=== PATIENT | female | born 1950 | race Caucasian/White ===

== ENCOUNTER → 2024-10-08 10:42 | Outpatient (CLI) | payer MEDICARE, OTHER, SELFPAY ==
[2024-10-08 12:07] LABS: Add Manual Diff / Slide Review NO; Basophils Absolute Auto 100 /uL (0-100); Basophils Percent Auto 1.3 % (0-2); Eosinophils Absolute Auto 0 /uL (0-450); Eosinophils Percent Auto 0.8 % (2-4); Hematocrit 42.5 % (36-46); Hemoglobin 14.5 g/dL (12.0-16.0); Lymphocytes Absolute Auto 1800 /uL (1100-4500); Lymphocytes Percent Auto 38.1 % (25-40); Mean Corpuscular HGB Conc 34.1 % (30-36); Monocytes Absolute Auto 300 /uL (0-900); Monocytes Percent Auto 6.2 % (3-14); Neutrophils Absolute Auto 2500 /uL (1500-7000); Neutrophils Percent Auto 53.6 % (50-75); Platelet Count 220 X10^3/uL (150-400); Red Blood Cell Count 4.52 X10^6/uL (4.0-5.2); Red Cell Distribution Width 13.5 % (11.6-14.8); White Blood Cell Count 4.6 X10^3/uL (4.5-11.0)
[2024-10-08 12:28] LABS: Alanine Aminotransferase 37 IU/L (<35); Albumin 4.1 g/dL (3.5-5.0); Albumin Globulin Ratio 1.3 (1.0-2.8); Alkaline Phosphatase 95 U/L (38-126); Aspartate Aminotransferase 45 IU/L (14-36); BUN Creatinine Ratio 19.3 (6-22); Bilirubin Total 1.5 mg/dL (0.2-1.3); Blood Urea Nitrogen 17 mg/dL (7-17); Calcium 9.5 mg/dL (8.4-10.2); Carbon Dioxide 26 mmol/L (22-32); Chloride 107 mmol/L (98-107); Cholesterol 311 mg/dL (140-199); Estimated Glomerular Filt Rate > 60 mL/min (>60); Globulin 3.2 g/dL (1.7-4.1); Glucose 100 mg/dL (80-110); HDL Cholesterol 92 mg/dL (40-60); HEMOLYSIS < 15 (0-50); LDL Cholesterol Calculated 185 mg/dL (<100); Potassium 4.2 mmol/L (3.4-5.1); Sodium 138 mmol/L (137-145); Total Protein 7.3 g/dL (6.3-8.2); Triglycerides 168 mg/dL (35-150)
[2024-10-08 14:30] LABS: Hemoglobin A1C% w Est Avg Glu 5.2 % (4.0-6.0)
== END ==
LOC: LAB 10:45
PROVIDERS: PCP Family Medicine; Referring Provider Family Medicine; Visit Provider Family Medicine
DX: R10.11 Right upper quadrant pain (principal); Z13.1 Encounter for screening for diabetes mellitus; Z13.6 Encounter for screening for cardiovascular disorders; Z13.0 Encounter for screening for diseases of the blood and blood-forming organs and certain disorders involving the immune mechanism; Z12.11 Encounter for screening for malignant neoplasm of colon
CPT/HCPCS: 36415; 80053; 80061; 83036; 85025

== ENCOUNTER → 2024-11-06 11:51 | Outpatient (CLI) | payer MEDICARE, OTHER, SELFPAY ==
--- NOTE | 2024-11-06 11:52 | DI.MG.S_ITS ---
BILATERAL DIGITAL SCREENING MAMMOGRAM 3D/2D WITH CAD: 11/06/2024 CLINICAL: Routine screening. Comparison is made to exams dated: 03/01/2023 mammogram and 08/20/2021 mammogram - outside location. The breasts are almost entirely fatty (category a/<25% glandular tissue). Current study was also evaluated with a Computer Aided Detection (CAD) system. No significant masses, calcifications, or other findings are seen in either breast. There has been no significant interval change. IMPRESSION: NEGATIVE There is no mammographic evidence of malignancy. A 1 year screening mammogram is recommended. Based on the Tyrer Cuzick model (a risk assessment model) the patient's lifetime risk is 2.0% and her 10 year risk is 2.0%. According to the ACR, ACS, and NCCN guidelines, an annual breast MRI exam along with mammogram is recommended if the patient's lifetime risk is 20% or greater. This exam was interpreted at Station ID: [id number]. NOTE: For mammograms, a report in lay terms will be sent to the patient. Approximately 15% of breast malignancies will not be visualized mammographically. In the management of a palpable breast mass, a negative mammogram must not discourage biopsy of a clinically suspicious lesion. Electronically Signed By: Moshe youngblood/brian:11/06/2024 15:49:03 letter sent: Normal Exam ACR BI-RADS Category 1: Negative
--- NOTE | 2024-11-06 11:52 | DI.US.S_ITS ---
PROCEDURE: US ABDOMEN COMPLETE INDICATIONS: RUQ pain, atypical, 2 yrs TECHNIQUE: Real-time scanning was performed of the abdominal and retroperitoneal organs, with image documentation. COMPARISON: None. FINDINGS: Liver: Liver is normal in size and homogeneous in echotexture. The parenchyma is hyperechoic. Gallbladder: No gallstones. No wall thickening. No pericholecystic edema. Negative sonographic Irizarry's sign. Biliary ducts: Intrahepatic bile ducts are non-dilated. Extrahepatic bile duct caliber measures 6 mm. Normal is 6-7 mm or less in diameter, or 10 mm or less post-cholecystectomy. Pancreas: Visualized portions of the pancreas are sonographically normal. Miscellaneous: No free abdominal fluid. The inferior vena cava is patent. Spleen: The spleen is normal in size, measuring 8.5 cm in maximal length. Kidneys: The right kidney measures 9.4 cm in length. The left kidney measures 9.0 cm in length. Aorta: The visualized portions of the aorta measure under 3 centimeters in maximal diameter. Common iliac arteries: The common iliac arteries are normal in diameter, measuring 1.2 cm on the right and 1.3 cm on the left. IMPRESSION: Hepatic steatosis versus underlying hepatocellular disease. Otherwise, no acute sonographic abnormality of the abdomen. Dictated by: Josue Umana M.D. on 11/06/2024 at 16:56 Approved by: Josue Umana M.D. on 11/06/2024 at 16:58
== END ==
PROVIDERS: PCP Family Medicine; Referring Provider Family Medicine; Visit Provider Family Medicine
DX: Z12.31 Encounter for screening mammogram for malignant neoplasm of breast (principal); R92.313 Mammographic fatty tissue density, bilateral breasts; R10.11 Right upper quadrant pain
CPT/HCPCS: 76700; 77063; 77067

== ENCOUNTER 2024-11-12 07:54 | Day surgery (SDC) | payer MEDICARE, OTHER, SELFPAY ==
--- NOTE | 2024-11-12 | PATH_ITS ---
[facility] Accession Number: [id number] No. of containers..01 Tissue . 01 Material submitted: . colon - CECAL POLYP . 01 Diagnosis: CECAL POLYP: Tubular adenoma. MRV 11/13/2024 1350 Local . 01 Electronically signed: . Francisco Estrella MD, PhD, Pathologist NPI- [id number] . 01 Gross description: . CECAL POLYP: Received in formalin are 2 fragment(s) of salcedo, soft tissue measuring 0.1 x 0.1 x 0.1 cm to 0.3 x 0.2 x 0.2 cm submitted entirely in 1 cassette(s) /FERNANDA 11/13/2024 0123 Local . 01 Pathologist provided ICD-10: D12.0 . 01 CPT . 388911 Specimen Comment: A courtesy copy of this report has been sent to [facility] Pathology Performed at: [address] [facility] [address] [address], [place], [place] [id number] MD Ronald Ashford MD Phone: [phone]
[2024-11-12 08:38] VITALS: BP 117/68; PULSE 66; RESP 13; TEMP 36.2; O2SAT 98
[2024-11-12] MEDS: SODIUM CHLORIDE 0.9% 1,000 ML 84 ML IV (08:47)
--- NOTE | 2024-11-12 09:25 | P.HP_ITS ---
History of Present Illness History of Present Illness Date Patient Seen: 11/12/24 Time Patient Seen: 09:25 Chief complaint: Screening Colonoscopy Narrative: 74-year-old white female, last colonoscopy 10-15 years ago, no previous polyps noted. No changes in bowel habits. [facility] Medical History Fractures (~2012) Mumps (~1956) Cluster headache syndrome Surgical History Anesthesia History of hand surgery (~2012) S/P tubal ligation (~1978) History of appendectomy (10/31/1956) S/P tonsillectomy (~1955) Family History Mother Diabetes mellitus Grandmother Diabetes mellitus Social History marital status: unmarried,living together number of children: 1 household members: significant other lives independently: Yes caregiver/support person: No [facility] pets and animals: Yes (dog) education level: college occupational status: other current occupational exposures/hazards: No rosita/anabaptist: none special rosita needs: No leisure activities: exercise, music and reading seatbelt use: always helmet use: No working smoke detector in home: Yes fire extinguisher in home: Yes carbon monox detector in home: Yes firearms in home: No do you feel safe at home: Yes Smoking Status: Former smoker Tobacco: How many years used: 12 second hand exposure: No alcohol intake: current during the past year weight has: remained stable well-balanced diet: daily or most days daily servings fruits/ve-4 caffeine: Yes (2-3 cups per day) eating out: 1-3 times/week Type(s) of exercise: walking, regular exercise, resistance training and running frequency: 5-6 times per week duration: 60-90 minutes/day additional social history: OI since May 2023. has 3 homes: [facility] lives with partners due for colonoscopy: last done 2007, negative in the past Headaches -- cluster -- more frequent needs script : sumatriptan at onset only facial numbness PSHX: tonsils, appy BTL, hand surgery left NKDA tobacco: no etoh: 1 glass/week exercise? MM: couple years no breast problems FHX: diabetes maternal 09/2024 Meds Home Medications and Allergies Home Medications Medication Instructions Recorded Confirmed Type sumatriptan succinate 50 mg tablet 50 mg PO ONCE cluster headache #10 10/02/24 10/10/24 Rx tabs sodium,potassium,mag sulfates 17.5 See Rx Instructions PO .COMPLEX 11/05/24 Rx gram-3.13 gram-1.6 gram oral soln #354 mL (Suprep Bowel Prep Kit) Allergies Allergy/AdvReac Type Severity Reaction Status Date / Time No Known Drug Allergies Allergy Verified 10/10/24 09:48 Review of Systems Review of Systems ROS: Yes All systems reviewed with the patient and are negative except as otherwise documented Exam Vital Signs (past 8 hours): - 11/12/24 08:38 Temperature 97.2 F L Pulse Rate 66 Respiratory Rate 13 Blood Pressure 117/68 Pulse Oximetry 98 Oxygen Delivery Method Room Air Oxygen Delivery Method Room Air Narrative Exam Narrative: Gen: NAD, sitting comfortably in bed, appears well HEENT: Sclera are anicteric, head is normocephalic and atraumatic, trachea is midline. CV: RRR, no JVD Resp: clear to auscultation bilaterally, equal chest wall movement bilaterally Abd: soft, nontender, normoactive bowel sounds Ext: no edema, full range of motion Neuro: Cranial nerves II-XII grossly intact, no focal deficits Skin: No erythema or ecchymosis Assessment & Plan Assessment and plan (1) Colon cancer screening: Status: Acute Assessment & Plan narrative: Patient presents for colonoscopy Risks, benefits, alternatives to colonoscopy explained, including but not hernandez ited to bowel perforation or other serious complication requiring surgery at less than 1 in 5000 colonoscopies, abdominal pain, cramping or bleeding and less than 1% of colonoscopies, and the chances that we find a diagnosis that would require further intervention of about 2%. Patient agrees to proceed. Time-Based Coding :: [TOTAL MINUTES] spent with patient and on the chart (including review of chart, obtaining history, exam, reviewing outside data, placing orders, documenting exam and treatment plan, and counseling patient) on [DATE].
--- NOTE | 2024-11-12 09:50 | PM.OP.COLON ---
Operative Date/Time/Diagnoses Date of procedure: 11/12/24 Time of procedure: 09:50 Pre-op diagnosis: Colon screening Post-op diagnosis: same (Cecal polyp) Procedure & Clinicians Study performed: Colonoscopy with cold snare polypectomy of cecal polyp Same procedure as scheduled: Yes Indications: Colon screening Surgeon: Delon Alexandra Procedure Notes SCOAP/Timeout: Performed Procedure in detail: Time-out was performed. Mac was induced. Patient was placed in left lateral decubitus position. The perineum was inspected without any gross abnormality. Lubricated pediatric colonoscope was inserted and advanced to the cecum. The terminal ileum was intubated. The colonoscope was withdrawn slowly inspecting the circumference of the colon. Cold snare polypectomy was used to remove a small sessile polyp from the cecum. This was retrieved completely. Very small polyps may have been missed, prep quality was adequate. Retroflexed view of the rectum showed small, non prolapsed nonbleeding internal hemorrhoids. The scope was withdrawn the patient was taken to PACU in good condition. Scope withdrawal time: 6 Sedation minutes: 15 Findings: polyp(s) (Small, 6 mm sessile cecal polyp) Post-procedure Recommendations: Colonoscopy in 10 years (Next colonoscopy in 7-10 years if in good health) Follow up: as needed Disposition: PACU
[2024-11-12 09:53] VITALS: BP 89/52; PULSE 80; RESP 16; TEMP 36.5; O2SAT 97
[2024-11-12 09:55] VITALS: BP 92/59; PULSE 79; RESP 16; O2SAT 97
[2024-11-12 10:01] VITALS: BP 101/62; PULSE 74; RESP 14; O2SAT 98
[2024-11-12 10:06] VITALS: BP 104/63; PULSE 73; RESP 16; O2SAT 98
== END 2024-11-12 10:34 | disposition home or self-care (01) ==
PROVIDERS: PCP Family Medicine; Referring Provider Surgery; Visit Provider Surgery
PROC: 0DJD8ZZ Inspection of Lower Intestinal Tract, Via Natural or Artificial Opening Endoscopic (ICD-10-PCS; CPT 45378; principal; 2024-11-12 09:15)
DX: Z12.11 Encounter for screening for malignant neoplasm of colon (principal); D12.0 Benign neoplasm of cecum; K64.8 Other hemorrhoids
CPT/HCPCS: 45385; J2405; J2704

== ENCOUNTER → 2024-11-16 11:29 | Outpatient (CLI) | payer MEDICARE, OTHER, SELFPAY ==
--- NOTE | 2024-11-16 | DI.MRI.S_ITS ---
PROCEDURE: MR OPTIC NRV WWO CON INDICATIONS: LOSS OF VISION LEFT EYE W/ OPTIC NERVE ATROPHY TECHNIQUE: Noncontrast sagittal T1 spin echo, axial FLAIR, axial gradient echo, axial diffusion and ADC acquired through the brain. Coronal STIR, thin-slice axial T1 spin echo through the orbits. After the administration of contrast, thin-slice axial and coronal T1 spin echo with fat saturation through the orbits, axial and coronal and sagittal T1 spin echo with fat saturation through the brain. COMPARISON: None. FINDINGS: Image quality: Mac row diagnostic neck Orbits: Globes are symmetrical. The left optic nerve is slightly smaller than the right. No masses or abnormal enhancement can be seen along the optic nerves. No retrobulbar masses or fat abnormalities. The extra-ocular muscles are normal and symmetric in appearance. Lacrimal glands are normal. Optic chiasm is normal. Periorbital soft tissues appear normal. CSF spaces: Ventricles are normal in size and shape. Basal cisterns are patent. No extra-axial fluid collections. Brain: No intracranial bleeds or mass effects. No abnormal intracranial enhancement. Parker-white matter interface is intact. Diffusion weighted images demonstrate no acute ischemic insults. Pituitary gland appears normal, without sellar or suprasellar masses. Brainstem appears normal. Normal intravascular flow voids are present. Note is made of age-appropriate brain parenchymal volume loss and chronic small vessel ischemic changes. Symmetric calcification can be seen involving the basal ganglia, which is considered to be normal for age. Skull and face: Calvarial marrow is normal in signal. Sinuses: Sinuses and mastoids are clear. IMPRESSION: The left optic nerve is slightly smaller in size than the right. However, the degree of atrophy is not striking on these images. No masses or abnormal abnormalities can be seen within the orbits. No significant brain parenchymal abnormality is seen. Dictated by: Davie Wan M.D. on 11/16/2024 at 12:59 Approved by: Davie Wan M.D. on 11/16/2024 at 13:02
== END ==
PROVIDERS: PCP Family Medicine; Referring Provider Family Medicine; Visit Provider Family Medicine
DX: H53.40 Unspecified visual field defects (principal); H47.20 Unspecified optic atrophy
CPT/HCPCS: 70543; 70553; A9579

== ENCOUNTER → 2024-11-26 13:39 | Outpatient (CLI) | payer MEDICARE, OTHER, SELFPAY ==
--- NOTE | 2024-11-26 13:41 | DI.RAD.S_ITS ---
PROCEDURE: XR DEXA AXIAL SKELETON INDICATIONS: osteoporosis screening COMPARISON: None. FINDINGS: Lumbar Spine: Bone mineral density 1.203 g/cm2, T score 1.1. Left Femoral Neck: Bone mineral density 0.731 g/cm2, T score -1.1. Left Hip: Bone mineral density 0.904 g/cm2, T score -0.3. Fracture Risk Calculation (when applicable): 10-year fracture risk of a major osteoporotic fracture 5.4 percent and of a hip fracture 0.9 percent. (T score greater or equal to -1.0 to: NORMAL) (T score from -1.1 to -2.4: OSTEOPENIA) (T score less than or equal to -2.5: OSTEOPOROSIS) IMPRESSION: Osteopenia with increased 10 year fracture risk. Follow-up guidelines as follows: Osteoporosis: Consider a repeat DEXA and Vertebral Fracture Assessment (VFA) exam in 2 years or sooner if medically necessary, to reassess this patient's status. Osteopenia: Consider a repeat DEXA in 2-3 years to reassess this patient's status, or if there is a new clinical indication. Normal: Consider a repeat DEXA in 5 years or sooner, or if there is a new clinical indication. All treatment decisions require clinical judgment and consideration of individual patient factors, including patient preferences, comorbidities, previous drug use, risk factors not captured in the FRAX model (e.g., frailty, falls, vitamin D deficiency, increased bone turnover, interval significant decline in bone density ) and possible under- or over-estimation of fracture risk by FRAX. In addition, the NOF Guide recommends that FDA-approved medical therapies be considered in postmenopausal women and men age >= 50 years with a: * Hip or vertebral (clinical or morphometric) fracture * T-score of <=-2.5 at the spine or hip * Ten-year fracture probability by FRAX of >= 3% for hip fracture or >=20% for major osteoporotic fracture. Dictated by: Jose Aguilar M.D. on 11/26/2024 at 17:07 Approved by: Jose Aguilar M.D. on 11/26/2024 at 17:08
--- NOTE | 2024-11-26 13:41 | DI.CT.S_ITS ---
PROCEDURE: CT LUNG LOW DOSE SCREENING INDICATIONS: meets criteria for lung cancer screening TECHNIQUE: Noncontrast 2.0-2.5 mm thick sections acquired from the pulmonary apices to the posterior costophrenic angles. 7 mm thick axial MIP, and 5 mm coronal and sagittal reformats were then acquired. For radiation dose reduction, the following was used: automated exposure control, adjustment of mA and/or kV according to patient size. COMPARISON: None. FINDINGS: Image quality: Diagnostic. Lower Neck: No enlarged lymph nodes. Thyroid: No thyroid nodules which require sonographic follow up, per consensus guidelines. Axillae: No enlarged lymph nodes. Chest Wall: Unremarkable. Bones: Unremarkable. Lungs and Pleura: No pneumothorax or pleural effusions. No consolidation or suspicious nodules. Heart: Heart size is normal. No pericardial effusion. Thoracic Vessels: The aorta and pulmonary arteries demonstrate normal size. Mediastinum and Mimi: No enlarged lymph nodes. Esophagus: No wall thickening. Mild hiatal hernia. Upper Abdomen: Visualized upper abdomen solid organs and bowel loops appear normal. IMPRESSION: No suspicious pulmonary nodules. LUNG-RADS 1; continued annual screening, if eligible. Clinically Significant Non-pulmonary Findings: None. Dictated by: Donna Lim M.D. on 11/27/2024 at 10:14 Approved by: Donna Lim M.D. on 11/27/2024 at 11:29
== END ==
LOC: CT 13:40
PROVIDERS: PCP Family Medicine; Referring Provider Family Medicine; Visit Provider Family Medicine
DX: Z87.891 Personal history of nicotine dependence (principal); M85.852 Other specified disorders of bone density and structure, left thigh; Z12.2 Encounter for screening for malignant neoplasm of respiratory organs; Z78.0 Asymptomatic menopausal state; K44.9 Diaphragmatic hernia without obstruction or gangrene
CPT/HCPCS: 71271; 77080

== ENCOUNTER → 2024-11-26 15:16 | Outpatient (CLI) | payer MEDICARE, OTHER, SELFPAY | PROVIDERS: PCP Family Medicine; Referring Provider Family Medicine; Visit Provider Family Medicine | DX: Z13.828 Encounter for screening for other musculoskeletal disorder (principal) ==

== ENCOUNTER → 2025-08-12 08:56 | Outpatient (CLI) | payer MEDICARE, OTHER, SELFPAY ==
[2025-08-12 09:53] LABS: HEMOLYSIS < 15 (0-50); Iron 121 ug/dL (37-170)
[2025-08-12 09:56] LABS: Blood Urea Nitrogen 24 mg/dL (7-17); Calcium 9.6 mg/dL (8.4-10.2); Carbon Dioxide 26 mmol/L (22-32); Chloride 106 mmol/L (98-107); Cholesterol 277 mg/dL (140-199); Estimated Glomerular Filt Rate > 60 mL/min (>60); Glucose 104 mg/dL (70-99); HDL Cholesterol 88 mg/dL (40-60); HEMOLYSIS < 15 (0-50); Potassium 4.6 mmol/L (3.4-5.1); Sodium 139 mmol/L (137-145); Triglycerides 109 mg/dL (35-150)
[2025-08-12 10:07] LABS: Percent Iron Saturation 39 % (15-50); Total Iron Binding Capacity 308 ug/dL (265-497); Transferrin 279 mg/dL (206-381)
[2025-08-12 10:26] LABS: TSH w/ Reflex to FT4 1.24 uIU/mL (0.47-4.68); Thyroid Stimulating Hormone 1.24 uIU/mL (0.47-4.68)
[2025-08-12 10:31] LABS: Ferritin 169 ng/mL (11-264)
[2025-08-12 22:36] LABS: Hepatitis A Antibody IgM Negative (Negative); Hepatitis B Core Antibody IgM Negative (Negative); Hepatitis C Antibody Non Reactive (Non Reactive)
[2025-08-13 16:38] LABS: Free Kappa Lt Chains, Serum 22.1 mg/L (3.3-19.4); Free Lambda Lt Chains,Serum 19.9 mg/L (5.7-26.3)
== END ==
PROVIDERS: PCP Family Medicine; Referring Provider Family Medicine; Visit Provider Family Medicine
DX: Z01.812 Encounter for preprocedural laboratory examination (principal); E78.2 Mixed hyperlipidemia; K76.0 Fatty (change of) liver, not elsewhere classified; R10.11 Right upper quadrant pain; K75.9 Inflammatory liver disease, unspecified; L65.9 Nonscarring hair loss, unspecified; I10 Essential (primary) hypertension
CPT/HCPCS: 36415; 80048; 80061; 80074; 82390; 82728; 83540; 83550; 83883; 84155; 84165; 84443; 86038

== ENCOUNTER → 2025-08-23 09:05 | Outpatient (CLI) | payer MEDICARE, OTHER, SELFPAY ==
--- NOTE | 2025-08-23 09:07 | DI.CT.S_ITS ---
PROCEDURE: CT ABDOMEN W CON INDICATIONS: abd upper abd pain, increase LFTs, bili TECHNIQUE: After the administration of intravenous contrast, 5 mm thick sections acquired from the diaphragms to the iliac crests. 5 mm thick coronal and sagittal reformats were acquired. For radiation dose reduction, the following was used: automated exposure control, adjustment of mA and/or kV according to patient size. COMPARISON: [facility], CT, CT LUNG LOW DOSE SCREENING, 11/26/2024, 14:10. FINDINGS: Image quality: Diagnostic. Lower Chest: No significant findings. ABDOMEN: Liver: No solid mass. Gallbladder: No radiopaque gallstones or wall thickening. Biliary ducts: No biliary dilation. Pancreas: No ductal dilation. Spleen: Size is within normal limits. Adrenal Glands: No adrenal nodules. Kidneys and Ureters: No hydronephrosis. No solid mass. No complex renal cystic lesion which requires follow up. Stomach and Bowel: Normal colonic caliber, without significant wall thickening. Peritoneum: No abnormal intraperitoneal fluid. No free air. Ventral Wall: No hernia. Abdominal Nodes: No retroperitoneal or mesenteric adenopathy by size criteria. Vessels: Aorta and inferior vena cava are normal in size. Bones: No aggressive osseous abnormality. IMPRESSION: Normal examination, source upper abdominal pain and abnormal liver function tests is not seen. Dictated by: Wilmer Sinclair M.D. on 08/23/2025 at 16:07 Approved by: Wilmer Sinclair M.D. on 08/23/2025 at 16:17
== END ==
LOC: CT 09:06
PROVIDERS: PCP Family Medicine; Referring Provider Family Medicine; Visit Provider Family Medicine
DX: K76.0 Fatty (change of) liver, not elsewhere classified (principal); R10.11 Right upper quadrant pain
CPT/HCPCS: 74160; Q9967

== ENCOUNTER → 2025-09-16 08:38 | Outpatient (CLI) | payer MEDICARE, OTHER, SELFPAY ==
--- NOTE | 2025-09-16 08:49 | DI.NM.S_ITS ---
PROCEDURE: NM HIDA WITH CCK PHARMACEUTICAL: 5.1 mCi Tc-99m mebrofenin IV; 1.2 mcg CCK IV. INDICATIONS: RUQ PAIN TECHNIQUE: Following intravenous administration of Tc-99m mebrofenin, sequential anterior abdominal images were obtained. To evaluate the contractile response of the gallbladder in response to Cholecystokinin (CCK), sincalide (0.02 ???g/kg) was administered by slow intravenous infusion approximately 60 minutes after the administration of the radiopharmaceutical. Sequential imaging was continued for 30 minutes after the start of CCK infusion. Gallbladder ejection fraction was calculated. COMPARISON: [facility], CT, CT ABDOMEN W CON, 08/23/2025, 10:21. FINDINGS: Biliary scan: There is normal tracer uptake and excretion by the liver. There is normal visualization of the intrahepatic ducts, common bile duct, and gallbladder. There is normal tracer transit into the duodenum. CCK stimulation: There is normal contractile response of the gallbladder to CCK infusion. The calculated gallbladder ejection fraction is 61% ; normal values are above 35%. IMPRESSION: Patent cystic duct. Normal gallbladder ejection fraction. Dictated by: Santana Morton M.D. on 09/16/2025 at 11:32 Approved by: Santana Morton M.D. on 09/16/2025 at 11:33
== END ==
LOC: NUCM 08:41
PROVIDERS: PCP Family Medicine; Referring Provider Family Medicine; Visit Provider Family Medicine
DX: R10.11 Right upper quadrant pain (principal)
CPT/HCPCS: 78227; A9537; J2805